=== PATIENT | female | born 1940 | race Caucasian/White ===

== ENCOUNTER 2016-10-08 15:10 | Emergency (ER) | payer MEDICARE ==
--- NOTE | ~2016-10-08 | CN ---
Consultation Report [facility] [address] [place]. [address] NAME: MARYAM MAYA : 38 STATUS : DEP ER PAT#: [id number] AGE: 76 ADM/REG DATE : 10/08/16 MR#: [id number] REPORT SERV DATE: 10/12/16 DICTATED BY: OPAL DUGAN DATE: 10/08/16 REPORT STATUS : Draft TRANSCRIBED BY: MODL DATE: 10/08/16 INTERNAL MEDICINE CONSULTATION FOR ER DATE OF CONSULTATION: 10/08/2016 REASON FOR CONSULTATION: Exacerbation of CHF. HISTORY OF PRESENT ILLNESS: Ms. Maya is a 76-year-old female with history of congestive heart failure, unknown ejection fraction, but known mitral regurgitation, atrial fibrillation, hypertension, coronary artery disease, and COPD, who is seen as an outpatient for her CHF at [place], last seen one month ago, doing well at that time, and doing well overall until the last day. The patient says that she had eaten at a restaurant and had salty food each of the last two nights and she has gained 1.5 pounds each of the last two days and woke this morning with increasing shortness of breath, decreased exertional tolerance, but no chest pain, palpitations, coughing, wheezing, dizziness, faintness, fever, chills, or nausea and vomiting. Swelling was not significant. Due to the increase in weight, she took three of her 20 mg Lasix tablets, which added no result at home and she came to the emergency department for evaluation. She says since then she has been here, although she has not received intravenous diuretics, she has actually diurese and has evacuated a large amount of urine. She feels quite a bit better at this time. The patient denies any bowel or bladder problems, no change in the neurological deficits. No change in her appetite. Remainder of review of systems are negative. PAST MEDICAL HISTORY: As mentioned above. History of left diaphragmatic paralysis, history of percutaneous intervention in the past. MEDICATIONS: Eliquis, metoprolol 37.5 b.i.d., isosorbide mononitrate, amiodarone, Protonix, Lasix at variable doses, Lipitor, potassium, thyroxine, calcium carbonate, vitamin D, folic acid, Zoloft, Requip, methotrexate, nitroglycerin, and Lortab, probable Coumadin. ALLERGIES: CODEINE. FAMILY HISTORY: Positive for coronary artery disease. SOCIAL HISTORY: The patient has no tobacco, alcohol, or drug history. PHYSICAL EXAMINATION: VITAL SIGNS: On presentation, blood pressure 118/82, repeat 147/77; pulse of 48; respirations 17; afebrile; sat of 95%. GENERAL: Awake, alert, and oriented x3. No apparent distress. HEENT: Pupils are equal and reactive to light. Extraocular movements intact. No cranial nerve deficits. Moist mucous membranes. Normal oropharynx. NECK: No jugular venous distention, although visible V-wave in Y descent was noted. She had no carotid bruits, lymphadenopathy, or goiter. CARDIAC: Bradycardic, regular rhythm with a very prominent systolic murmur best heard at Consultation Report [address] [place]. [address] NAME: MARYAM MAYA DOUTHANAID : 38 STATUS : [facility] PAT#: [id number] AGE: 76 ADM/REG DATE : 10/08/16 MR#: [id number] REPORT SERV DATE: 10/12/16 DICTATED BY: OPAL DUGAN DATE: 10/08/16 REPORT STATUS : Draft TRANSCRIBED BY: MACEY DATE: 10/08/16 the apex, radiating to the axilla. LUNGS: Clear to auscultation bilaterally with good excursion. Apical upstroke was enlarged and laterally displaced. ABDOMEN: Nondistended, nontender. Bowel sounds normoactive. I could not appreciate any hepatojugular reflux. EXTREMITIES: Trace edema. No cyanosis or clubbing. Good pulses and capillary refill. NEUROLOGIC: Normal sensory function in all four extremities. SKIN: Warm and dry. PSYCHIATRIC: She is appropriate. LABORATORY EVALUATION: Sodium 144, potassium 4.1, chloride 106, bicarb 35, BUN 29, creatinine 1.0, glucose 115. BNP 917. Troponin I negative. White count 8000, H and H 12 and 38, platelets 240. INR 2.6. Chest x-ray showed cardiomegaly, coronary artery bypass grafting, and increased vascular markings consistent with CHF, unable to assess the left lower lobe on this portable view. EKG shows sinus bradycardia, no ST or T-wave changes. ASSESSMENT AND PLAN: 1. Acute on chronic congestive heart failure with unknown ejection fraction, exacerbated by increased sodium intake but better with oral medications as prescribed by her outpatient jewelry manager. Her medication list suggests congestive heart failure with preserved ejection fraction, however, the presence of the mitral regurgitation suggests the possibility that her ejection fraction is overestimated that she would in fact benefit from afterload reduction. We recommend DARINEL inhibitor in the absence of contraindications and lisinopril prescription will be given. 2. Bradycardia. This may also have resulted in the congestive heart failure due to impaired cardiac output due to the suppressed heart rate. This is likely due to the beta-varsha. No suggestion of other pathology. We recommended reduction in the dose. Given history of atrial fibrillation, close followup with her jewelry manager at [place] is recommended to see if any dose adjustments to amiodarone or other medications are recommended. There is no evidence of atrial fibrillation at this time. 3. Chronic obstructive pulmonary disease, not exacerbated. 4. Hypertension, blood pressure is satisfactory, replacing the lower metoprolol with the lisinopril. The patient actually wishes to go home as she is not currently in an exacerbation of CHF following her diuresis on her own. We feel like it is satisfactory to go home with the aforementioned instructions provided she has close followup with her jewelry manager at [place]. GISELL/MACEY Opal Dugan M.D. / [id number] Consultation Report [address] [address] NAME: MARYAM MAYA ARCELIA : 38 STATUS : [facility] PAT#: [id number] AGE: 76 ADM/REG DATE : 10/08/16 MR#: [id number] REPORT SERV DATE: 10/12/16 DICTATED BY: OPAL DUGAN DATE: 10/08/16 REPORT STATUS : Draft TRANSCRIBED BY: MACEY DATE: 10/08/16 CC: Keith George MD
[2016-10-08 14:26] LABS: BASOPHILS 1.2 %; BASOPHILS ABSOLUTE 0.09 10/3/uL (0.0-0.16); EOSINOPHILS 2.5 %; EOSINOPHILS ABSOLUTE 0.19 10/3/uL (0.0-0.53); HEMATOCRIT 37.9 % (36.0-48.0); HEMOGLOBIN 11.8 g/dL (12.0-16.0); IMMATURE GRANULOCYTES 0.4 %; IMMATURE GRANULOCYTES ABSOLUTE 0.03 10/3/uL (0.0-0.11); LYMPHOCYTES 18.7 %; LYMPHOCYTES ABSOLUTE 1.44 10/3/uL (0.67-4.30); MEAN CORPUS HGB CONC 31.1 g/dL (32.0-36.0); MEAN CORPUSCULAR HEMOGLOB 26.2 pg (26.0-34.0); MEAN PLATELET VOLUME 10.9 fL (9.2-13.0); MONOCYTES 7.9 %; MONOCYTES ABSOLUTE 0.61 10/3/uL (0.21-1.20); NEUTROPHILS 69.3 %; NEUTROPHILS ABSOLUTE 5.35 10/3/uL (2.02-8.40); PLATELET COUNT 240 10/3/uL (150-400); RBC DISTRIBUTION WIDTH 19.6 % (12.0-16.0); RED CELL COUNT 4.51 10/6/uL (4.0-5.6); WHITE BLOOD CELLS 7.7 10/3/uL (4.5-10.5)
[2016-10-08 14:27] LABS: MANUAL DIFF NO %
[2016-10-08 14:33] LABS: INTERNATIONAL NORMAL RATI 2.6 UNITS (-)
[2016-10-08 14:36] LABS: PROTIME (NOT ORD) 27.8 SEC (12.0-14.5)
[2016-10-08 14:43] LABS: BUN (BLOOD UREA NITROGEN) 25 MG/DL (6-23); CALCIUM, SERUM 8.5 MG/DL (8.5-10.4); CHEST PAIN PROFILE TAT 0 Hrs 21 Mins; CHLORIDE, SERUM 106 MMOL/L (96-112); CO2 (CARBON DIOXIDE) 35 MMOL/L (24-34); CREATININE 1.01 MG/DL (0.55-1.02); GFR AFRICAN AMERICAN 62 ML/MIN (>=60); GFR NON AFRICAN AMERICAN 54 ML/MIN (>=60); GLUCOSE, SERUM 115 MG/DL (60-99); POTASSIUM, SERUM 4.1 MMOL/L (3.5-5.3); SODIUM, SERUM 144 MMOL/L (135-148); TROPONIN I 0.02 NG/ML (<0.05)
[~2016-10-08 15:10] MED LIST: ADVAIR INH; AMB10 PO; AMB5 PO; AMITIZA8 MCG PO; ARTIFICIAL TEARS OPH; ASAB PO; BYSTOLIC2.5 MG PO; C1 PO; CITRACAL PO; CONSTULOSE PO; COUMADIN3 MG PO; CYMBALTA60 PO; FLAG500TAB PO; FOLIC ACID PO; FOLIC ACID800 MCG PO; FOLIC PO; HEART PILL; HYOMAX-FT0.125 MG SL; IMDUR30 PO; ISORDIL10 PO; KLOR-CON 88 MEQ PO; L20 PO; LACRILUBEO OPH; LEVOTHYROXIN50 MCG PO; LOP25 PO; LOP50; LOP50 PO; LORT7 PO; LYRICA100 MG PO; LYRICA300 MG PO; MAX25 PO; MELATONIN5 M1 PO; MTX2.5 PO; MULTIVITAMI1 PO; NITROQUICK0.4 MG SL; NITROSTAT0.4 MG SL; NORCO1 TA2 PO; OCUVITE PO; P10 PO; PACERONE100 MG PO; PRADAXA150 MG PO; PREV30 PO; PRILO PO; REQUIP2 PO; REQUIP3 PO; SYN.05 PO; SYN1 PO; SYNTHROID PO; TEARS NATURA OP; TOPXL50 PO; TREXALL10 MG PO; TRIAMTERENE/HCTZ; VERAMYST27.5 MCG NAS; VITAMIN D31000 UNIT PO; VYTORIN 10/20 T1 TAB PO; ZITH250 PO; ZOL50 PO; [UNRECOGNIZED DRUG - REMARK] PO
[2016-10-08] MEDS ORDERED: IMDUR60 PO (15:34)
[2016-10-08] MEDS ORDERED: REFRES1 (15:48)
[2016-12-22] MEDS ORDERED: L20 PO (13:17)
[2016-12-22] MEDS ORDERED: BUSPAR10 PO (13:17)
[2016-12-22] MEDS ORDERED: IMDUR30 PO (13:17)
[2016-12-22] MEDS ORDERED: REQUIP2 PO (13:18)
[2016-12-22] MEDS ORDERED: CORDARONE PO (13:18)
[2016-12-22] MEDS ORDERED: LIPITOR40 PO (13:18)
[2016-12-22] MEDS ORDERED: LOP25 PO (13:19)
[2016-12-22] MEDS ORDERED: CITRACAL PO (13:19)
[2016-12-22] MEDS ORDERED: SYN.05 PO (13:19)
[2016-12-22] MEDS ORDERED: FOLIC ACID800 MCG PO (13:19)
[2016-12-22] MEDS ORDERED: PROTONIX PO (13:20)
[2016-12-22] MEDS ORDERED: KLOR-CON 88 MEQ PO (13:20)
[2016-12-22] MEDS ORDERED: LYRICA300 MG PO (13:21)
[2016-12-22] MEDS ORDERED: XARELTO20 MG PO (13:22)
[2016-12-22] MEDS ORDERED: NORCO1 TA2 PO (13:23)
[2016-12-22] MEDS ORDERED: ZOL50 PO (13:23)
[2016-12-22] MEDS ORDERED: NITROSTAT0.4 MG SL (13:24)
[2016-12-22] MEDS ORDERED: MTX2.5 PO (13:24)
[2016-12-22] MEDS ORDERED: REFRESH GEL OPH (13:25)
[2016-12-22] MEDS ORDERED: REFRESH OPH SO0.3 ML OPH (13:25)
[2016-12-22] MEDS ORDERED: D 5000 PO (13:25)
[2016-12-25] MEDS ORDERED: OMNICEF300 PO (18:09)
== END 2016-10-08 17:52 | disposition home or self-care (01) ==
LOC: ER 15:10
PROVIDERS: Emergency Medicine
DX: I11.0 Hypertensive heart disease with heart failure (principal); I50.9 Heart failure, unspecified; I48.91 Unspecified atrial fibrillation; K21.9 Gastro-esophageal reflux disease without esophagitis; Z95.5 Presence of coronary angioplasty implant and graft; Z90.710 Acquired absence of both cervix and uterus; Z88.5 Allergy status to narcotic agent; Z88.8 Allergy status to other drugs, medicaments and biological substances; Z79.899 Other long term (current) drug therapy
CPT/HCPCS: 71010; 80048; 83735; 83880; 84484; 85025; 85610; 85730; 99285

== ENCOUNTER 2016-11-02 21:09 | Emergency (ER) | payer MEDICARE ==
[2016-11-02 16:09] LABS: BASOPHILS 0.4 %; BASOPHILS ABSOLUTE 0.04 10/3/uL (0.0-0.16); EOSINOPHILS 0.5 %; EOSINOPHILS ABSOLUTE 0.05 10/3/uL (0.0-0.53); ER CBC TAT 0 Hrs 08 Mins; HEMATOCRIT 40.5 % (36.0-48.0); HEMOGLOBIN 12.9 g/dL (12.0-16.0); IMMATURE GRANULOCYTES 0.4 %; IMMATURE GRANULOCYTES ABSOLUTE 0.04 10/3/uL (0.0-0.11); LYMPHOCYTES 7.8 %; LYMPHOCYTES ABSOLUTE 0.75 10/3/uL (0.67-4.30); MEAN CORPUS HGB CONC 31.9 g/dL (32.0-36.0); MEAN CORPUSCULAR HEMOGLOB 26.4 pg (26.0-34.0); MEAN CORPUSCULAR VOLUME 82.8 fL (80-100); MEAN PLATELET VOLUME 10.8 fL (9.2-13.0); MONOCYTES 7.1 %; MONOCYTES ABSOLUTE 0.69 10/3/uL (0.21-1.20); NEUTROPHILS 83.8 %; NEUTROPHILS ABSOLUTE 8.09 10/3/uL (2.02-8.40); PLATELET COUNT 260 10/3/uL (150-400); RBC DISTRIBUTION WIDTH 20.5 % (12.0-16.0); RED CELL COUNT 4.89 10/6/uL (4.0-5.6); WHITE BLOOD CELLS 9.7 10/3/uL (4.5-10.5)
[2016-11-02 16:15] LABS: MANUAL DIFF NO %
[2016-11-02 16:22] LABS: CHLORIDE, SERUM 108 MMOL/L (96-112); GFR AFRICAN AMERICAN 71 ML/MIN (>=60); GFR NON AFRICAN AMERICAN 62 ML/MIN (>=60); GLUCOSE, SERUM 115 MG/DL (60-99); POTASSIUM, SERUM 3.4 MMOL/L (3.5-5.3); SGOT(AST) 18 U/L (5-40); SGPT(ALT) 22 U/L (5-65); SODIUM, SERUM 145 MMOL/L (135-148); TOTAL BILIRUBIN 0.7 MG/DL (0-1.2)
[2016-11-02 16:26] LABS: ALBUMIN 3.5 G/DL (3.5-5.0); ALKALINE PHOSPHATASE 70 U/L (45-117); BUN (BLOOD UREA NITROGEN) 15 MG/DL (6-23); CO2 (CARBON DIOXIDE) 29 MMOL/L (24-34); GLOBULIN 3.4 G/DL (2.5-4.1); TOTAL PROTEIN 6.9 G/DL (6.0-8.5)
[2016-11-02 17:53] LABS: ASCORBIC ACID (UR NOT ORDER) NEG (NEG); BILIRUBIN, URINE NEGATIVE (NEG); ER URINALYSIS TAT 0 Hrs 14 Mins; KETONE, URINE NEGATIVE (NEG); LEUKOCYTE ESTERASE(NOT OR TRACE (NEG); NITRITE (URINE) NEG (NEG); WBC (NOT ORDERED) (RFLEX) 2 (0-5)
[~2016-11-02 21:09] MED LIST changes: +IMDUR60 PO; +REFRES1
[2016-12-22] MEDS ORDERED: IMDUR30 PO (13:17)
[2016-12-22] MEDS ORDERED: L20 PO (13:17)
[2016-12-22] MEDS ORDERED: BUSPAR10 PO (13:17)
[2016-12-22] MEDS ORDERED: CORDARONE PO (13:18)
[2016-12-22] MEDS ORDERED: LIPITOR40 PO (13:18)
[2016-12-22] MEDS ORDERED: REQUIP2 PO (13:18)
[2016-12-22] MEDS ORDERED: SYN.05 PO (13:19)
[2016-12-22] MEDS ORDERED: FOLIC ACID800 MCG PO (13:19)
[2016-12-22] MEDS ORDERED: CITRACAL PO (13:19)
[2016-12-22] MEDS ORDERED: LOP25 PO (13:19)
[2016-12-22] MEDS ORDERED: PROTONIX PO (13:20)
[2016-12-22] MEDS ORDERED: KLOR-CON 88 MEQ PO (13:20)
[2016-12-22] MEDS ORDERED: LYRICA300 MG PO (13:21)
[2016-12-22] MEDS ORDERED: XARELTO20 MG PO (13:22)
[2016-12-22] MEDS ORDERED: NORCO1 TA2 PO (13:23)
[2016-12-22] MEDS ORDERED: ZOL50 PO (13:23)
[2016-12-22] MEDS ORDERED: MTX2.5 PO (13:24)
[2016-12-22] MEDS ORDERED: NITROSTAT0.4 MG SL (13:24)
[2016-12-22] MEDS ORDERED: REFRESH GEL OPH (13:25)
[2016-12-22] MEDS ORDERED: D 5000 PO (13:25)
[2016-12-22] MEDS ORDERED: REFRESH OPH SO0.3 ML OPH (13:25)
[2016-12-25] MEDS ORDERED: OMNICEF300 PO (18:09)
== END 2016-11-02 23:24 | disposition home or self-care (01) ==
LOC: ER 21:09
PROVIDERS: Emergency Medicine
DX: R10.9 Unspecified abdominal pain (principal); I11.0 Hypertensive heart disease with heart failure; I50.9 Heart failure, unspecified; I48.91 Unspecified atrial fibrillation; Z95.1 Presence of aortocoronary bypass graft; Z90.710 Acquired absence of both cervix and uterus; Z88.5 Allergy status to narcotic agent; Z88.8 Allergy status to other drugs, medicaments and biological substances; Z79.899 Other long term (current) drug therapy
CPT/HCPCS: 74176; 80053; 81001; 83605; 83690; 85025; 93005; 99285